=== PATIENT | female | born 1965 | race African-American/Black ===

== ENCOUNTER → 2020-03-19 | Outpatient (CLI) | payer BC ==
[~2020-03-19] MED LIST: ALEVE220 MG PO; APAP650 PO; CARAFATE 1 GM TA1 G1 PO; HYDROCODONE-AP1 EAC6 PO; LORTAB 5 MG/5001 TA1 PO; NOHOMEMEDICATIONS; NORVASC10 MG PO; ONDANSETRON HCL4 M2 PO; PEPCID20 MG PO; PHENERGAN 25 MG25 M1 PO; PROTONIX40 MG PO; ZOFRAN ODT4 MG PO
== END ==
LOC: LAB 14:31
PROVIDERS: ATTEND Nurse Practitioner
DX: Z20.828 Contact with and (suspected) exposure to other viral communicable diseases (principal)

== ENCOUNTER 2020-07-20 22:28 | Emergency (ER) | payer OTHER ==
[~2020-07-20] VITALS: Ht 160 cm; Wt 112.9 kg
[2020-07-21] MEDS ORDERED: IBUPROFEN 800800 M1 PO (00:37)
[2020-07-21] MEDS ORDERED: FLEXERIL PO (00:38)
[2020-07-21 01:00] VITALS: BP 149/94
== END 2020-07-21 00:54 | disposition home or self-care (01) ==
LOC: ER 22:28
DX: S39.012A Strain of muscle, fascia and tendon of lower back, initial encounter (principal); I10 Essential (primary) hypertension; Z79.899 Other long term (current) drug therapy; V49.9XXA Car occupant (driver) (passenger) injured in unspecified traffic accident, initial encounter; Y93.89 Activity, other specified; Y92.410 Unspecified street and highway as the place of occurrence of the external cause; Y99.8 Other external cause status

== ENCOUNTER 2021-04-20 20:49 | Emergency (ER) | payer OTHER ==
[~2021-04-20] VITALS: Ht 152.4 cm; Wt 108.9 kg
[~2021-04-20 20:49] MED LIST changes: +FLEXERIL PO; +IBUPROFEN 800800 M1 PO
[2021-04-20 21:05] VITALS: BP 152/84
[2021-04-20] MEDS ORDERED: VALIUM2 MG PO (22:17)
== END 2021-04-20 22:25 | disposition home or self-care (01) ==
LOC: ER 20:49
DX: M54.50 Low back pain, unspecified (principal); I10 Essential (primary) hypertension; Z79.891 Long term (current) use of opiate analgesic; Z79.899 Other long term (current) drug therapy; V43.52XA Car driver injured in collision with other type car in traffic accident, initial encounter; Y93.89 Activity, other specified; Y92.89 Other specified places as the place of occurrence of the external cause; Y99.8 Other external cause status